=== PATIENT | female | born 1990 | race Caucasian/White ===

== ENCOUNTER 2021-07-12 05:58 | Observation (INO) | payer OTHER ==
[~2021-07-12] VITALS: Ht 160 cm; Wt 110.1 kg
[2021-07-12] MEDS ORDERED: ACETAMINOPHEN 325MG TABLET PO ONE (06:15)
[2021-07-12 06:44] LABS: CHLORIDE 109 mEq/L (98-107)
[2021-07-12] MEDS ORDERED: ONDANSETRON HCL 4MG/2ML INJ IV ONE (07:00)
[2021-07-12] MEDS ORDERED: MORPHINE SULFATE 4 MG/ML CPJ (NOT FOR IM USE) IV ONE (07:00)
[2021-07-12 07:08] LABS: BASOPHILS % 0.7 % (0.0-2.0); EOSINOPHILS % 0.9 % (0.0-5.0); HEMATOCRIT. 30.4 % (36.0-48.0); HEMOGLOBIN. 10.7 g/dL (12.0-16.0); LYMPHOCYTES % 14.8 % (20.0-50.0); MEAN CORPUSCULAR HEMOGLOBIN 30.6 pg (28.0-32.0); MEAN CORPUSCULAR VOLUME 87.4 fL (81.0-99.0); MEAN PLATELET VOLUME 9.7 fl (7.4-10.4); MONOCYTES % 7.8 % (2.0-8.0); NEUTROPHILS % 75.8 % (40.0-76.0); PLATELET 248 x1000/uL (130-400); RED BLOOD CELL COUNT 3.48 mill/uL (4.2-5.4); RED CELL DISTRIBUTION WIDTH 13.3 % (11.6-14.6)
[2021-07-12 08:00] VITALS: BP 97/45
== END 2021-07-12 10:15 | disposition home or self-care (01) ==
LOC: ER 05:58 → 8 EST LDRP 09:32
PROVIDERS: ADMIT Obstetrics & Gynecology; ATTEND Obstetrics & Gynecology
DX: O26.892 Other specified pregnancy related conditions, second trimester (principal); R07.89 Other chest pain; R06.02 Shortness of breath; O99.891 Other specified diseases and conditions complicating pregnancy; M54.9 Dorsalgia, unspecified; O99.012 Anemia complicating pregnancy, second trimester; Z3A.24 24 weeks gestation of pregnancy
CPT/HCPCS: 36415; 59025; 71045; 80053; 83880; 84484; 84702; 85025; 85379; 86850; 86900; 86901; 93005; 96374; 96375; 99285; J2270; J2405; 99281; G0378

== ENCOUNTER 2023-01-31 02:18 | Emergency (ER) | payer MEDICAID, OTHER ==
[~2023-01-31] VITALS: Ht 160 cm; Wt 95.0 kg
[2023-01-31] MEDS ORDERED: ACETAMINOPHEN 325MG TABLET PO STA (02:54)
[2023-01-31] MEDS ORDERED: METOCLOPRAMIDE HCL 10MG/2ML VIAL IV ONE (03:00)
[2023-01-31] MEDS ORDERED: MAGNESIUM/ALUMINUM HYDROXIDE/SIMETHICONE 30ML UDC PO ONE (03:00)
[2023-01-31 03:13] LABS: BASOPHILS % 0.2 % (0.0-2.0); EOSINOPHILS % 0.8 % (0.0-5.0); HEMATOCRIT. 32.4 % (36.0-48.0); HEMOGLOBIN. 11.2 g/dL (12.0-16.0); LYMPHOCYTES % 11.3 % (20.0-50.0); MEAN CORPUSCULAR VOLUME 87.2 fL (81.0-99.0); MEAN PLATELET VOLUME 8.9 fl (7.4-10.4); MONOCYTES % 7.1 % (2.0-8.0); NEUTROPHILS % 80.6 % (40.0-76.0); PLATELET 252 x1000/uL (130-400); RED BLOOD CELL COUNT 3.72 mill/uL (4.2-5.4)
[2023-01-31 03:19] LABS: CHLORIDE 106 mEq/L (98-107)
[2023-01-31] MEDS ORDERED: ACET-2708 MT (04:06)
[2023-01-31] MEDS ORDERED: MAG-55 MT (04:06)
[2023-01-31] MEDS ORDERED: METO-293 MT (04:06)
[2023-01-31 04:15] VITALS: BP 111/67
== END 2023-01-31 04:19 | disposition home or self-care (01) ==
LOC: ER 02:34
DX: O99.612 Diseases of the digestive system complicating pregnancy, second trimester (principal); K92.9 Disease of digestive system, unspecified; K29.70 Gastritis, unspecified, without bleeding; Z13.9 Encounter for screening, unspecified; Z3A.19 19 weeks gestation of pregnancy
CPT/HCPCS: 36415; 80053; 83690; 85025; 96374; 99283; J2765; Z7610

== ENCOUNTER 2025-02-08 12:43 | Emergency (ER) | payer OTHER ==
[~2025-02-08] VITALS: Ht 160 cm; Wt 113.3 kg
[~2025-02-08 12:43] MED LIST: ACET-2708 MT; MAG-55 MT; METO-293 MT
[2025-02-08 12:50] VITALS: TEMP 36.7; O2SAT 98
[2025-02-08] MEDS ORDERED: ACETAMINOPHEN 325MG TABLET PO ONE (13:30)
[2025-02-08] MEDS ORDERED: DEXAMETHASONE 2MG TABLET PO ONE (13:30)
[2025-02-08] MEDS ORDERED: FAMOTIDINE 20MG TABLET PO ONE (13:30)
[2025-02-08] MEDS: FAMOTIDINE 20MG TABLET PO NR (13:49)
[2025-02-08] MEDS: DEXAMETHASONE 4MG TABLET PO NR (13:49)
[2025-02-08] MEDS: ACETAMINOPHEN 325MG TABLET PO NR (13:49)
[2025-02-08 13:59] VITALS: BP 123/76; PULSE 82; RESP 16; O2SAT 100
== END 2025-02-08 14:11 | disposition home or self-care (01) ==
LOC: ER 12:43
DX: R21 Rash and other nonspecific skin eruption (principal); R51.9 Headache, unspecified; Z79.899 Other long term (current) drug therapy
CPT/HCPCS: 99284; J8540; Z7610